=== PATIENT | male | born 1995 | race Caucasian/White ===

== ENCOUNTER 2018-10-07 10:00 | Emergency (ER) | payer OTHER ==
[~2018-10-07] VITALS: Ht 185.4 cm; Wt 94.4 kg
[2018-10-07] MEDS ORDERED: IBUP-1022 PO (12:29)
[2018-10-07] MEDS ORDERED: ROBA500T PO (12:29)
[2018-10-07 12:32] VITALS: BP 119/59
== END 2018-10-07 12:36 | disposition home or self-care (01) ==
LOC: M ED 10:00
DX: S16.1XXA Strain of muscle, fascia and tendon at neck level, initial encounter (principal); S39.012A Strain of muscle, fascia and tendon of lower back, initial encounter; V49.49XA Driver injured in collision with other motor vehicles in traffic accident, initial encounter; Y92.410 Unspecified street and highway as the place of occurrence of the external cause